=== PATIENT | female | born 1945 | race Caucasian/White ===

== ENCOUNTER 2016-07-12 08:49 | Day surgery (SDC) | payer MEDICARE, BC ==
--- NOTE | 2016-07-12 12:19 | Operative Note ---
DATE OF SURGERY: 07/12/2016. REFERRING PHYSICIAN: Dahiana Gonzáles M.D. PROCEDURE: Colonoscopy to the cecum with electrocautery snare polypectomy times one and Endoclip placement times two. INDICATION: Colorectal cancer screening. ANESTHESIA: Intravenous sedation was administered by the Department of Anesthesiology and included Diprivan titrated to effect. PROCEDURE: Following informed consent from this alert individual, including a discussion of the risks and benefits of the procedure and an opportunity for the patient to ask questions, the patient was in the left lateral decubitus position. A digital rectal examination was performed. No abnormalities were detected. Following this, the Olympus PCF-180 video colonoscope was inserted into the rectum without resistance. The rectal mucosa had a normal appearance with normal folds and distensibility. The colonoscope was advanced up through the bowel to the level of the cecum without much difficulty. There were a few scattered diverticula noted in the sigmoid colon. The cecum was well defined by noting the appendiceal orifice and ileocecal valve. At the base of the cecum , there was a large, 2.0 cm flat polyp noted which was removed in piecemeal fashion with electrocautery snare. A wide eschar was noted. Two Endoclips were placed after the polypectomy for closure. There was no significant bleeding. From the cecum, the colonoscope was then slowly withdrawn back through the bowel re-examining the mucosa upon withdrawal. No additional polyps were seen upon withdrawal, but again there was diverticulosis noted in the sigmoid region. Retroflexion in the rectum demonstrated small internal hemorrhoids. The endoscope was straightened and withdrawn. The colon preparation was good. The patient tolerated the procedure well and was returned to the recovery area in stable condition. IMPRESSION: 1. A 2.0 CM SESSILE POLYP NOTED AT THE CECAL BASE REMOVED WITH ELECTROCAUTERY SNARE POLYPECTOMY IN PIECEMEAL FASHION WITH TWO ENDOCLIPS PLACED FOR CLOSURE. 2. SIGMOID DIVERTICULOSIS. 3. SMALL INTERNAL HEMORRHOIDS. RECOMMENDATIONS: The patient was advised she should receive a copy of her pathology report at home in the next two to three weeks. If not, she was asked to call my office to review the results of testing done today. Further recommendations will be forthcoming pending those results. Follow up will also be with Dr. Dahiana Gonzáles. TONY ROSAS D.O. Date Time JOB NUMBER: [id number] cc: Chayito Larsen
[2016-07-12] MEDS ORDERED: MIDAZOLAM HCL 2MG/2ML VIAL IV ONE (14:38)
[2016-07-12] MEDS ORDERED: LIDOCAINE 2% MDV (20MG/ML) 20ML VIAL IV ONE (14:38)
[2016-07-12] MEDS ORDERED: PROPOFOL 10 MG/ML VIAL IV ONE (14:38)
== END 2016-07-12 10:40 | disposition home or self-care (01) ==
LOC: HOP 08:49
PROVIDERS: ATTEND Internal Medicine Gastroenterology
DX: Z12.11 Encounter for screening for malignant neoplasm of colon (principal); D12.0 Benign neoplasm of cecum; E83.52 Hypercalcemia; K21.0 Gastro-esophageal reflux disease with esophagitis; E03.9 Hypothyroidism, unspecified; K57.30 Diverticulosis of large intestine without perforation or abscess without bleeding; K64.8 Other hemorrhoids

== ENCOUNTER 2019-08-01 05:38 | Day surgery (SDC) | payer MEDICARE ==
[2019-08-01] MEDS ORDERED: FENTANYL PF 100MCG/2ML VIAL IV ONE (05:39)
[2019-08-01] MEDS ORDERED: LIDOCAINE 2% MDV (20MG/ML) 20ML VIAL IV ONE (05:39)
[2019-08-01] MEDS ORDERED: MIDAZOLAM HCL 2MG/2ML VIAL IV ONE (05:39)
[2019-08-01] MEDS ORDERED: PROPOFOL 10 MG/ML VIAL IV ONE (05:39)
[2019-08-01] MEDS ORDERED: ONDANSETRON HCL IV 4 MG/2 ML VIAL IVP ONE (05:39)
[2019-08-01] MEDS ORDERED: SCOPOLAMINE 1 PATCH TDSY TD ONE ×2 (05:50→06:00)
[2019-08-01] MEDS ORDERED: RINGERS SOLUTION,LACTATED 1,000 ML IV ONE (06:00)
[2019-08-01] MEDS ORDERED: LIDOCAINE 1% W/EPI 1:200,000 MPF 30ML SQ ONE (07:34)
[2019-08-01] MEDS ORDERED: BUPIVACAINE 0.25% PF (2.5MG/ML) 10ML VIAL IM ONE (07:34)
[2019-08-01] MEDS ORDERED: BUPIVACAINE 0.5% W/EPI MPF 30 ML VIAL SQ ONE (07:34)
[2019-08-01] MEDS ORDERED: DEXAMETHASONE PRESERVATIVE FREE 10MG/ML VIAL IM ONE (07:35)
--- NOTE | 2019-08-02 08:45 | Operative Note - [place] ---
DATE OF SURGERY: 08/01/2019 PREOPERATIVE DIAGNOSIS: LEFT LUMBAR RADICULOPATHY, ICD-10 CODE M54.16 AND M54.17. OPERATION: FLUOROSCOPICALLY GUIDED LEFT TRANSFORAMINAL SELECTIVE SEGMENT EPIDURAL INJECTION L5 AND S1. SURGEON: Richi Urena D.O. ANESTHESIA: Local sedation. ANESTHESIA PROVIDER: MAUREEN Leyva CRNA INDICATION: This patient presents with pain which is low back, hip and leg. Diagnostics do show a L4-L5 and L5-S1 disk, the pattern of pain is L5 and S1. The pain level 0-10 is a 7. Previous procedure was directed at the back pain, it helped, but did not get the leg down towards the ankle and foot. PROCEDURE: Intravenous line, vital sign monitoring, IV sedation, prepped and draped, sterile technique. Under imaging the lumbar foraminal opening on the left at L5 and S1 are both identified and marked, infiltrated with local, two separate 20-gauge needles, one to each foraminal opening, one at L5 and one at S1, atraumatic. No blood. No CSF. Contrast epidurogram showing epidural flow and no vascular absorption. 5 ml of 0.125% Marcaine with Dexamethasone injected first left then right. Both needles were removed, back cleaned, topical antibiotic, sterile dressing applied. Will monitor and evaluate. JOB NUMBER: [id number] MTDD
== END 2019-08-01 08:06 | disposition home or self-care (01) ==
LOC: SUR 05:38
PROVIDERS: ATTEND Pain Medicine Interventional Pain Medicine
DX: M54.16 Radiculopathy, lumbar region (principal); M54.17 Radiculopathy, lumbosacral region; I10 Essential (primary) hypertension; E78.00 Pure hypercholesterolemia, unspecified; K21.9 Gastro-esophageal reflux disease without esophagitis
CPT/HCPCS: 62367; 01992; Q9967; J2405; J1100; J3010; J7120